=== PATIENT | female | born 1970 | race Caucasian/White ===

== ENCOUNTER → 2017-09-29 | Outpatient (CLI) | payer MEDICARE ==
[2017-09-29 10:11] LABS: BASO % 0.3 % (0.0-1.0); EOS # 0.1 10*3/uL (0.0-0.4); EOS % 1.9 % (1.0-4.0); HEMATOCRIT 45.9 % (37.0-47.0); LYMPH # 2.4 10*3/uL (1.3-4.4); LYMPH % 32.5 % (27.0-41.0); MEAN CELL VOLUME 88.4 fl (81.0-99.0); MEAN CORPUSCULAR HGB 28.9 pg (27.0-31.0); MEAN CORPUSCULAR HGB CONC 32.7 g/dl (33.0-37.0); MEAN PLATELET VOLUME 13.5 fl (9.6-12.3); MONO # 0.6 10*3/uL (0.1-1.0); MONO % 8.6 % (3.0-9.0); NEUT # 4.2 10*3/uL (2.3-7.9); NEUT % 56.4 % (47.0-73.0); PLATELET COUNT AUTOMATED 167 10*3/uL (130-400); RED BLOOD COUNT 5.19 10*6/uL (4.10-5.10); RED CELL DISTRI WIDTH 16.4 % (0-14.5); WHITE BLOOD COUNT 7.5 10*3/uL (4.8-10.8)
[2017-09-29 10:47] LABS: ALBUMIN 3.8 gm/dl (3.1-4.5); ALKALINE PHOSPHATASE 57 U/L (45-117); BUN 12 mg/dl (7-24); CHLORIDE 110 mmol/L (98-107); CREATININE 0.64 mg/dL (0.55-1.02); POTASSIUM 3.7 mmol/L (3.5-5.1); SGOT/AST 17 IU/L (3-35); SGPT/ALT 21 U/L (12-78); SODIUM 140 mmol/L (136-145); TOTAL PROTEIN 7.7 gm/dL (6.4-8.2)
[2017-09-29 11:59] LABS: FERRITIN 40.6 ng/mL (10.0-291.0)
[2017-09-30 05:08] LABS: TOTAL PROTEIN, SERUM 7.2 g/dL (6.0-8.5)
[2017-09-30 08:09] LABS: IMMUNOGLOBULIN G, QNT 1006 mg/dL (700-1600); IMMUNOGLOBULIN M, QNT 40 mg/dL (26-217)
[2017-10-03 14:10] LABS: A/G RATIO 1.1 (0.7-1.7); ALBUMIN 3.8 g/dL (2.9-4.4); ALPHA-1-GLOBULIN 0.3 g/dL (0.0-0.4); ALPHA-2-GLOBULIN 0.9 g/dL (0.4-1.0); BETA GLOBULIN 1.1 g/dL (0.7-1.3); GAMMA GLOBULIN 1.1 g/dL (0.4-1.8); GLOBULIN, TOTAL 3.4 g/dL (2.2-3.9); M-SPIKE Not Observed g/dL (Not Observed)
== END | disposition home or self-care (01) ==
LOC: LAB 09:48
PROVIDERS: Psychiatry & Neurology Neurology
DX: E11.42 Type 2 diabetes mellitus with diabetic polyneuropathy (principal); R20.9 Unspecified disturbances of skin sensation; G62.9 Polyneuropathy, unspecified; M25.50 Pain in unspecified joint; Z79.899 Other long term (current) drug therapy

== ENCOUNTER → 2018-04-10 | Outpatient (CLI) | payer MEDICARE ==
[2018-04-10 11:17] LABS: BUN 9 mg/dl (7-24); CREATININE 0.72 mg/dL (0.55-1.02)
== END | disposition home or self-care (01) ==
LOC: LAB 10:19
PROVIDERS: Physician Assistant Medical
DX: M54.14 Radiculopathy, thoracic region (principal)

== ENCOUNTER → 2018-04-13 | Outpatient (CLI) | payer MEDICARE | END | disposition home or self-care (01) | LOC: MRI 10:43 | DX: M48.04 Spinal stenosis, thoracic region (principal); M46.04 Spinal enthesopathy, thoracic region ==

== ENCOUNTER 2020-03-02 18:32 | Emergency (ER) | payer MEDICARE ==
[~2020-03-02] VITALS: Ht 157.4 cm; Wt 113.4 kg
[2020-03-02 18:38] VITALS: BP 151/86
== END 2020-03-02 20:30 | disposition home or self-care (01) ==
LOC: ED 18:32
DX: S49.91XA Unspecified injury of right shoulder and upper arm, initial encounter (principal); Z86.73 Personal history of transient ischemic attack (TIA), and cerebral infarction without residual deficits; W18.39XA Other fall on same level, initial encounter; Y93.89 Activity, other specified; Y92.89 Other specified places as the place of occurrence of the external cause; Y99.8 Other external cause status

== ENCOUNTER → 2021-01-25 | Outpatient (CLI) | payer MEDICARE | END | disposition home or self-care (01) | LOC: MRI 01-18 09:00 | PROVIDERS: ATTEND Physician Assistant Medical | DX: M47.812 Spondylosis without myelopathy or radiculopathy, cervical region (principal); M47.814 Spondylosis without myelopathy or radiculopathy, thoracic region ==

== ENCOUNTER → 2021-02-01 | Outpatient (CLI) | payer MEDICARE | END | disposition home or self-care (01) | LOC: MRI 09:18 | PROVIDERS: ATTEND Physician Assistant Medical | DX: M47.816 Spondylosis without myelopathy or radiculopathy, lumbar region (principal); M51.27 Other intervertebral disc displacement, lumbosacral region; M48.061 Spinal stenosis, lumbar region without neurogenic claudication ==

== ENCOUNTER → 2021-02-08 | Outpatient (CLI) | payer MEDICARE | END | disposition home or self-care (01) | LOC: MRI 01-18 09:00 | PROVIDERS: ATTEND Physician Assistant Medical | DX: R29.898 Other symptoms and signs involving the musculoskeletal system (principal) ==

== ENCOUNTER → 2022-05-17 | Outpatient (CLI) | payer OTHER ==
[2022-05-18 06:07] LABS: HBSAG Negative (Negative); HEP B CORE AB, IGM Negative (Negative); HEPATITIS C ANTIBODY <0.1 (0.0-0.9)
== END | disposition home or self-care (01) ==
LOC: LAB 10:21
PROVIDERS: ATTEND Nurse Practitioner Family
DX: K74.60 Unspecified cirrhosis of liver (principal); R10.9 Unspecified abdominal pain; K75.81 Nonalcoholic steatohepatitis (NASH)

== ENCOUNTER 2022-06-20 11:08 | Emergency (ER) | payer OTHER ==
[~2022-06-20] VITALS: Ht 160 cm; Wt 117.9 kg
[2022-06-20 11:21] VITALS: BP 153/87
[2022-06-20 11:57] LABS: BASO % 0.2 % (0.0-1.0); EOS # 0.2 10*3/uL (0.0-0.4); EOS % 2.6 % (1.0-4.0); HEMATOCRIT 46.5 % (37.0-47.0); LYMPH # 2.2 10*3/uL (1.3-4.4); MEAN CELL VOLUME 89.9 fl (81.0-99.0); MEAN CORPUSCULAR HGB 28.4 pg (27.0-31.0); MEAN CORPUSCULAR HGB CONC 31.6 g/dl (33.0-37.0); MEAN PLATELET VOLUME 12.1 fl (9.6-12.3); MONO # 0.6 10*3/uL (0.1-1.0); MONO % 7.1 % (3.0-9.0); NEUT # 5.5 10*3/uL (2.3-7.9); NEUT % 63.8 % (47.0-73.0); PLATELET COUNT AUTOMATED 241 10*3/uL (130-400); RED BLOOD COUNT 5.17 10*6/uL (4.10-5.10); RED CELL DISTRI WIDTH 14.2 % (0-14.5); WHITE BLOOD COUNT 8.6 10*3/uL (4.8-10.8)
[2022-06-20 12:02] LABS: BILIRUBIN Negative (Negative); BLOOD Negative (Negative); CLARITY Clear (Clear); COLOR Yellow (Yellow); GLUCOSE Negative (Negative); KETONE Negative (Negative); LEUKO ESTERASE Negative (Negative); NITRITE Negative (Negative); PH 5.5 (4.5-8.0); SPECIFIC GRAVITY 1.015 (1.001-1.030); UROBILINOGEN 0.2 E.U./dl (0.0-1.0)
[2022-06-20 12:12] LABS: ALKALINE PHOSPHATASE 60 U/L (46-116); BUN 8 mg/dl (9-23); CHLORIDE 100 mmol/L (98-107); LIPASE 25 U/L (12-53); POTASSIUM 4.3 mmol/L (3.4-5.1); SGPT/ALT 16 U/L (10-49); TOTAL PROTEIN 7.4 gm/dL (6.0-8.0)
== END 2022-06-20 14:09 | disposition home or self-care (01) ==
LOC: ED 11:08
PROVIDERS: Emergency Medicine
DX: R10.31 Right lower quadrant pain (principal); Z90.49 Acquired absence of other specified parts of digestive tract; Z98.890 Other specified postprocedural states

== ENCOUNTER 2024-04-29 00:13 | Emergency (ER) | payer OTHER ==
[~2024-04-29] VITALS: Ht 157.5 cm; Wt 111.6 kg
[2024-04-29] MEDS ORDERED: CITALOPRAM20 MG PO (00:25)
[2024-04-29] MEDS ORDERED: ATORVASTATIN CA10 M1 PO (00:25)
[2024-04-29] MEDS ORDERED: METFORMIN HYDR500 MG PO (00:25)
[2024-04-29] MEDS ORDERED: DULOXETINE HCL60 MG PO (00:25)
[2024-04-29] MEDS ORDERED: GABAPENTIN100 M2 PO (00:26)
[2024-04-29] MEDS ORDERED: OMEPRAZOLE40 MG PO (00:26)
[2024-04-29] MEDS ORDERED: ROPINIROLE HYDRO4 MG PO (00:26)
[2024-04-29] MEDS ORDERED: TRAZODONE50 MG PO (00:26)
[2024-04-29 00:53] LABS: HEMATOCRIT 41.4 % (37.0-47.0); MEAN CELL VOLUME 88.7 fl (81.0-99.0); MEAN CORPUSCULAR HGB 28.3 pg (27.0-31.0); MEAN CORPUSCULAR HGB CONC 31.9 g/dl (33.0-37.0); PLATELET COUNT AUTOMATED 152 10*3/uL (130-400); RED BLOOD COUNT 4.67 10*6/uL (4.10-5.10); RED CELL DISTRI WIDTH 13.7 % (0-14.5)
[2024-04-29 01:13] LABS: MANUAL DIFF REFLEX YES
[2024-04-29 01:15] LABS: ALKALINE PHOSPHATASE 167 U/L (46-116); BUN 10 mg/dl (9-23); CHLORIDE 102 mmol/L (98-107); LIPASE 27 U/L (12-53); POTASSIUM 3.4 mmol/L (3.4-5.1); SGPT/ALT 243 U/L (5-49); TOTAL PROTEIN 7.1 gm/dL (6.0-8.0)
[2024-04-29 01:18] LABS: PLATELET SUFFICIENCY NORMAL (NORMAL); TOTAL CELLS COUNTED 100 #CELLS
[2024-04-29] MEDS ORDERED: SODIUM CHLORIDE 0.9% 1,000 ML IV ONE (01:25)
[2024-04-29 01:49] LABS: BILIRUBIN 2+ (Negative); BLOOD Negative (Negative); CLARITY Cloudy (Clear); COLOR Dark Yellow (Yellow); GLUCOSE Negative (Negative); KETONE Negative (Negative); LEUKO ESTERASE Trace (Negative); NITRITE Negative (Negative); SPECIFIC GRAVITY 1.025 (1.001-1.030)
[2024-04-29 03:02] VITALS: BP 142/78
== END 2024-04-29 03:00 | disposition home or self-care (01) ==
LOC: ED 00:13
PROVIDERS: Internal Medicine
DX: R10.11 Right upper quadrant pain (principal); R51.9 Headache, unspecified; R11.2 Nausea with vomiting, unspecified; I10 Essential (primary) hypertension; Z79.84 Long term (current) use of oral hypoglycemic drugs; Z79.899 Other long term (current) drug therapy; Z90.49 Acquired absence of other specified parts of digestive tract

== ENCOUNTER 2024-05-08 04:44 | Emergency (ER) | payer OTHER ==
[~2024-05-08] VITALS: Ht 157.4 cm; Wt 112.0 kg
[~2024-05-08 04:44] MED LIST: ATORVASTATIN CA10 M1 PO; CITALOPRAM20 MG PO; DULOXETINE HCL60 MG PO; GABAPENTIN100 M2 PO; METFORMIN HYDR500 MG PO; OMEPRAZOLE40 MG PO; ROPINIROLE HYDRO4 MG PO; TRAZODONE50 MG PO
[2024-05-08 04:49] VITALS: BP 127/76
[2024-05-08 06:02] LABS: BASO % 0.3 % (0.0-1.0); EOS % 0.3 % (1.0-4.0); HEMATOCRIT 39.3 % (37.0-47.0); MEAN CELL VOLUME 87.3 fl (81.0-99.0); MEAN CORPUSCULAR HGB 28.4 pg (27.0-31.0); MEAN CORPUSCULAR HGB CONC 32.6 g/dl (33.0-37.0); MEAN PLATELET VOLUME 12.7 fl (9.6-12.3); MONO % 9.9 % (3.0-9.0); NEUT # 5.7 10*3/uL (2.3-7.9); NEUT % 54.5 % (47.0-73.0); PLATELET COUNT AUTOMATED 248 10*3/uL (130-400); RED CELL DISTRI WIDTH 13.5 % (0-14.5); WHITE BLOOD COUNT 10.5 10*3/uL (4.8-10.8)
[2024-05-08 06:12] LABS: BUN 29 mg/dl (9-23); CHLORIDE 102 mmol/L (98-107); POTASSIUM 3.9 mmol/L (3.4-5.1)
[2024-05-08 07:53] LABS: BILIRUBIN Negative (Negative); BLOOD Negative (Negative); CLARITY Clear (Clear); COLOR Yellow (Yellow); GLUCOSE Negative (Negative); KETONE Negative (Negative); LEUKO ESTERASE Negative (Negative); NITRITE Negative (Negative); PH 5.5 (4.5-8.0)
[2024-05-08 08:01] LABS: BACTERIA TRACE; RBC 0-2 rbc/hpf (0-2); WBC 0-2 wbc/hpf (0-5)
[2024-05-08] MEDS ORDERED: ACETAMINOPHEN 325 MG TAB PO ONE (08:30)
== END 2024-05-08 12:04 | disposition short-term general hospital (02) ==
LOC: ED 04:44
PROVIDERS: Internal Medicine
DX: R27.0 Ataxia, unspecified (principal); Z90.49 Acquired absence of other specified parts of digestive tract; Z98.890 Other specified postprocedural states

== ENCOUNTER 2024-05-25 10:46 | Emergency (ER) | payer OTHER ==
[~2024-05-25] VITALS: Ht 157.4 cm; Wt 107.5 kg
[2024-05-25] MEDS ORDERED: SODIUM CHLORIDE 0.9% 1,000 ML IV ONE (10:50)
[2024-05-25] MEDS ORDERED: Metoclopramide Hydrochloride 10 MG/2 ML VIAL IV ONE (10:50)
[2024-05-25] MEDS ORDERED: diphenhydrAMINE hydrochloride 50 MG/ML VIAL IV ONE (10:50)
[2024-05-25 10:53] VITALS: BP 112/61
[2024-05-25 11:44] LABS: HEMATOCRIT 35.1 % (37.0-47.0); MEAN CELL VOLUME 87.3 fl (81.0-99.0); MEAN CORPUSCULAR HGB 28.6 pg (27.0-31.0); MEAN CORPUSCULAR HGB CONC 32.8 g/dl (33.0-37.0); MEAN PLATELET VOLUME 13.3 fl (9.6-12.3); PLATELET COUNT AUTOMATED 180 10*3/uL (130-400); RED BLOOD COUNT 4.02 10*6/uL (4.10-5.10); RED CELL DISTRI WIDTH 13.4 % (0-14.5); WHITE BLOOD COUNT 5.2 10*3/uL (4.8-10.8)
[2024-05-25 12:00] LABS: BUN 14 mg/dl (9-23); CHLORIDE 99 mmol/L (98-107); POTASSIUM 3.5 mmol/L (3.4-5.1)
[2024-05-25] MEDS ORDERED: LORazepam 1 MG TAB PO ONE (12:05)
[2024-05-25 12:24] LABS: MANUAL DIFF REFLEX YES
[2024-05-25 12:30] LABS: ATYPICAL LYMPHS 1 % (0-0); BASOPHILS 1 % (0-1); TOTAL CELLS COUNTED 100 #CELLS
[2024-05-25 12:31] LABS: PLATELET SUFFICIENCY LOW (NORMAL); STOMATOCYTE FEW
[2024-05-25] MEDS ORDERED: REGLAN10 M1 PO (12:54)
[2024-05-25] MEDS ORDERED: IBU800 M2 PO (12:54)
== END 2024-05-25 13:28 | disposition home or self-care (01) ==
LOC: ED 10:46
PROVIDERS: Emergency Medicine
DX: R51.9 Headache, unspecified (principal); R41.82 Altered mental status, unspecified; Z90.49 Acquired absence of other specified parts of digestive tract

== ENCOUNTER 2024-06-24 16:31 | Emergency (ER) | payer OTHER ==
[~2024-06-24] VITALS: Ht 165.1 cm; Wt 99.3 kg
[~2024-06-24 16:31] MED LIST changes: +ASPIRIN ADULT L81 M2 PO; +CYMBALTA60 MG PO; +HYDROCHLOROTHIA25 M1 PO; +IBU800 M2 PO; +INDOMETHACIN25 M1 PO; +LOPRESSOR50 M1 PO; +LOSARTAN POTASS25 M1 PO; +METOPROLOL TART50 M1 PO; +PROTONIX40 MG PO; +REGLAN10 M1 PO; +TOPIRAMATE50 M2 PO; +TRAMADOL HCL50 MG PO; +VERAPAMIL HYDRO80 MG PO
[2024-06-24 17:16] VITALS: BP 112/50
[2024-06-24] MEDS ORDERED: POTASSIUM CHLORIDE IN WATER 100 ML IV ONE (17:50)
[2024-06-24] MEDS ORDERED: POTASSIUM CHLORIDE 20 MEQ TAB PO ONE (17:50)
[2024-06-24 18:10] LABS: BASO % 0.2 % (0.0-1.0); EOS # 0.1 10*3/uL (0.0-0.4); EOS % 2.3 % (1.0-4.0); HEMATOCRIT 38.7 % (37.0-47.0); MEAN CELL VOLUME 88.2 fl (81.0-99.0); MEAN CORPUSCULAR HGB 28.5 pg (27.0-31.0); MEAN CORPUSCULAR HGB CONC 32.3 g/dl (33.0-37.0); MEAN PLATELET VOLUME 12.4 fl (9.6-12.3); MONO # 0.5 10*3/uL (0.1-1.0); MONO % 8.8 % (3.0-9.0); NEUT # 3.3 10*3/uL (2.3-7.9); NEUT % 63.4 % (47.0-73.0); PLATELET COUNT AUTOMATED 229 10*3/uL (130-400); RED BLOOD COUNT 4.39 10*6/uL (4.10-5.10); RED CELL DISTRI WIDTH 14.4 % (0-14.5); WHITE BLOOD COUNT 5.1 10*3/uL (4.8-10.8)
[2024-06-24] MEDS ORDERED: SODIUM CHLORIDE 0.9% 1,000 ML IV ONE (18:22)
[2024-06-24 18:29] LABS: BUN 15 mg/dl (9-23); CHLORIDE 99 mmol/L (98-107); POTASSIUM 2.5 mmol/L (3.4-5.1)
[2024-06-24] MEDS ORDERED: POTASSIUM CHLO20 ME3 PO (18:31)
[2024-06-24] MEDS ORDERED: HYDROCHLOROTH12.5 M3 PO (19:04)
== END 2024-06-24 19:40 | disposition home or self-care (01) ==
LOC: ED 16:31
PROVIDERS: Emergency Medicine
DX: E87.6 Hypokalemia (principal); Z90.49 Acquired absence of other specified parts of digestive tract; Z79.899 Other long term (current) drug therapy

== ENCOUNTER 2024-07-03 17:18 | Emergency (ER) | payer OTHER ==
[~2024-07-03] VITALS: Ht 157.4 cm; Wt 102.1 kg
[~2024-07-03 17:18] MED LIST changes: +HYDROCHLOROTH12.5 M3 PO; +POTASSIUM CHLO20 ME3 PO
[2024-07-03 17:41] VITALS: BP 89/45
[2024-07-03 18:31] LABS: BASO % 0.6 % (0.0-1.0); EOS # 0.2 10*3/uL (0.0-0.4); EOS % 2.9 % (1.0-4.0); HEMATOCRIT 38.3 % (37.0-47.0); MEAN CELL VOLUME 88.2 fl (81.0-99.0); MEAN CORPUSCULAR HGB CONC 32.9 g/dl (33.0-37.0); MEAN PLATELET VOLUME 12.4 fl (9.6-12.3); MONO # 0.5 10*3/uL (0.1-1.0); MONO % 8.7 % (3.0-9.0); NEUT % 57.2 % (47.0-73.0); PLATELET COUNT AUTOMATED 218 10*3/uL (130-400); RED BLOOD COUNT 4.34 10*6/uL (4.10-5.10); RED CELL DISTRI WIDTH 14.5 % (0-14.5); WHITE BLOOD COUNT 5.2 10*3/uL (4.8-10.8)
[2024-07-03 18:49] LABS: BUN 20 mg/dl (9-23); CHLORIDE 103 mmol/L (98-107); POTASSIUM 2.6 mmol/L (3.4-5.1)
[2024-07-03] MEDS ORDERED: POTASSIUM CHLORIDE 20 MEQ TAB PO ONE ×2 (19:10)
[2024-07-03] MEDS ORDERED: POTASSIUM CHLORIDE IN WATER 100 ML IV ONE (19:15)
[2024-07-03] MEDS ORDERED: K-TAB20 MEQ PO (19:19)
[2024-07-03] MEDS ORDERED: SODIUM CHLORIDE 0.9% 500 ML IV ONE (20:00)
== END 2024-07-03 21:04 | disposition home or self-care (01) ==
LOC: ED 17:18
PROVIDERS: Internal Medicine
DX: E87.6 Hypokalemia (principal); Z90.49 Acquired absence of other specified parts of digestive tract; Z98.890 Other specified postprocedural states

== ENCOUNTER → 2024-07-22 | Outpatient (CLI) | payer OTHER ==
[~2024-07-22] MED LIST changes: +K-TAB20 MEQ PO
[2024-07-22 11:30] LABS: BUN 13 mg/dl (9-23); CHLORIDE 109 mmol/L (98-107); POTASSIUM 4.2 mmol/L (3.4-5.1)
== END | disposition home or self-care (01) ==
LOC: LAB 10:23
PROVIDERS: ATTEND Internal Medicine
DX: I10 Essential (primary) hypertension (principal)